=== PATIENT | female | born 1945 | race Caucasian/White ===

== ENCOUNTER 2020-07-21 21:36 | Inpatient (IN) ==
[2020-07-21 22:30] LABS: Basophils % 0.1 %; Hematocrit 34.6 % (35.3-44.9); Hemoglobin 11.2 g/dL (11.5-15.4); Immature Granulocytes % 0.4 % (0-4); Lymphocytes # 1.2 K/mcL (0.6-4.6); Lymphocytes % 16.2 %; Mean Corpuscular HGB Conc 32.4 g/dL (31.6-35.5); Mean Corpuscular Volume 89.6 fL (83.0-100.0); Mean Platelet Volume 9.3 fL (9.4-12.4); Monocytes # 0.4 K/mcL (0.0-1.3); Monocytes % 5.9 %; Neutrophils # 5.6 K/mcL (1.6-8.9); Platelet Count 308 K/mcL (140-400); Red Blood Count 3.86 M/mcL (3.82-4.97); Red Cell Distribution Width 13.6 % (11.5-14.5); Segmented Neutrophils % 77.4 %; White Blood Count 7.2 K/mcL (4.3-11.1)
[2020-07-21 22:52] LABS: Alanine Aminotransferase 9 Units/L (7-52); Albumin 3.9 g/dL (3.5-5.7); Alkaline Phosphatase 30 Units/L (34-104); Aspartate Amino Transferase 15 Units/L (13-39); BUN/Creatinine Ratio 26 (6-26); Bilirubin,Total 0.4 mg/dL (0.3-1.0); Blood Urea Nitrogen 19 mg/dL (8-23); Calcium 9.3 mg/dL (8.6-10.3); Carbon Dioxide 23 mEq/L (23-29); Chloride 104 mEq/L (98-107); Globulin 3.9 g/dL (2.4-3.5); Glucose 142 mg/dL (70-105); Magnesium 2.1 mg/dL (1.6-2.6); Osmolality,Calculated 291 (280-300); Phosphorous 2.9 mg/dL (2.7-4.5); Sodium 138 mEq/L (136-145); Total Protein 7.8 g/dL (6.4-8.9); Troponin I < 0.03 ng/mL (< 0.04); eGFR For African Americans > 60 (> 60); eGFR For Non-African Americans > 60 (> 60)
[2020-07-21 23:10] LABS: Ferritin 138 ng/mL (10-120)
[2020-07-21 23:46] LABS: Bacteria,Urine Moderate per hpf (None-Few); Bilirubin,Urine Negative (Negative); Blood,Urine Negative (Negative); Clarity,Urine Clear (Clear); Color,Urine Yellow (Yellow); Glucose,Urine (UA) Normal (Normal); Hyaline Casts,Urine Few per lpf (None Seen); Ketones,Urine Negative (Negative); Leukocyte Esterase,Urine Small (Negative); Mucus,Urine Few per lpf (None-Few); Nitrite,Urine Positive (Negative); PH,Urine 5.5 pH Units (5.0-8.0); Protein,Urine 30 mg/dL (Neg-Trace); RBC,Urine 0-3 per hpf (0-3); Specific Gravity,Urine 1.027 (1.010-1.025); Squamous Epithelial Cell,Urine Few per hpf (None-Few); Urobilinogen,Urine Normal (Normal)
[2020-07-22] MEDS ORDERED: cephALEXin 250 MG CAPSULE PO ONE (00:33)
[2020-07-22] MEDS ORDERED: 0.9 % Sodium Chloride 1,000 ML IVC ONE (00:36)
[2020-07-22] MEDS ORDERED: cefTRIAXone 1,000 MG in Water for inj. (sterile) 10 ML IVP ONE (00:36)
[2020-07-22] MEDS ORDERED: Acetaminophen 325 MG TABLET PO ONE (00:38)
[2020-07-22] MEDS ORDERED: Naloxone 0.4 MG/ML INJ IVP PRN (02:10)
[2020-07-22] MEDS ORDERED: 0.9 % Sodium Chloride 1,000 ML IVC SCH (02:15)
[2020-07-22 03:44] LABS: Hematocrit 30.2 % (35.3-44.9); Hemoglobin 9.8 g/dL (11.5-15.4); Mean Corpuscular HGB Conc 32.5 g/dL (31.6-35.5); Mean Corpuscular Hemoglobin 29.4 pg (28.0-33.3); Mean Corpuscular Volume 90.7 fL (83.0-100.0); Mean Platelet Volume 9.1 fL (9.4-12.4); Platelet Count 273 K/mcL (140-400); Red Blood Count 3.33 M/mcL (3.82-4.97); Red Cell Distribution Width 13.5 % (11.5-14.5); White Blood Count 5.6 K/mcL (4.3-11.1)
[2020-07-22 04:00] LABS: BUN/Creatinine Ratio 29 (6-26); Blood Urea Nitrogen 18 mg/dL (8-23); Calcium 8.1 mg/dL (8.6-10.3); Carbon Dioxide 19 mEq/L (23-29); Chloride 109 mEq/L (98-107); Glucose 109 mg/dL (70-105); Osmolality,Calculated 288 (280-300); Potassium 4.1 mEq/L (3.5-5.1); Sodium 138 mEq/L (136-145); eGFR For African Americans > 60 (> 60); eGFR For Non-African Americans > 60 (> 60)
[2020-07-22] MEDS: *HR* Heparin 5,000 UNIT/ML VIAL SQ SCH ×3 (07:28→21:01)
[2020-07-22] MEDS ORDERED: 0.9 % Sodium Chloride 500 ML IVC ONE ×2 (13:45→14:15)
[2020-07-22] MEDS ORDERED: Albuterol 2.5 MG/3 ML NEBULIZER IH PRN (15:36)
[2020-07-22] MEDS: Rivastigmine Tartrate (oral) 1.5 MG CAPSULE PO SCH (21:01)
[2020-07-23 00:59] LABS: Basophils % 0.2 %; Eosinophils % 0.2 %; Hematocrit 32.5 % (35.3-44.9); Hemoglobin 10.2 g/dL (11.5-15.4); Immature Granulocytes % 0.4 % (0-4); Lymphocytes # 1.6 K/mcL (0.6-4.6); Lymphocytes % 30.8 %; Mean Corpuscular HGB Conc 31.4 g/dL (31.6-35.5); Mean Corpuscular Hemoglobin 28.3 pg (28.0-33.3); Monocytes # 0.5 K/mcL (0.0-1.3); Monocytes % 9.3 %; Platelet Count 306 K/mcL (140-400); Red Blood Count 3.61 M/mcL (3.82-4.97); Red Cell Distribution Width 13.4 % (11.5-14.5); Segmented Neutrophils % 59.1 %; White Blood Count 5.1 K/mcL (4.3-11.1)
[2020-07-23 01:16] LABS: Alanine Aminotransferase 7 Units/L (7-52); Albumin 3.3 g/dL (3.5-5.7); Alkaline Phosphatase 24 Units/L (34-104); Aspartate Amino Transferase 13 Units/L (13-39); BUN/Creatinine Ratio 18 (6-26); Bilirubin,Total 0.4 mg/dL (0.3-1.0); Blood Urea Nitrogen 9 mg/dL (8-23); Calcium 8.6 mg/dL (8.6-10.3); Carbon Dioxide 21 mEq/L (23-29); Chloride 112 mEq/L (98-107); Globulin 3.3 g/dL (2.4-3.5); Glucose 93 mg/dL (70-105); Osmolality,Calculated 288 (280-300); Potassium 3.3 mEq/L (3.5-5.1); Sodium 140 mEq/L (136-145); Total Protein 6.6 g/dL (6.4-8.9); eGFR For African Americans > 60 (> 60); eGFR For Non-African Americans > 60 (> 60)
[2020-07-23 01:34] LABS: Platelet Estimate Normal (Normal); Reactive Lymphocytes Present (Not Present)
[2020-07-23] MEDS: *HR* Heparin 5,000 UNIT/ML VIAL SQ SCH ×3 (05:53→20:31)
[2020-07-23] MEDS: lisinopriL 5 MG TABLET PO SCH ×2 (08:52→09:20)
[2020-07-23] MEDS: Rivastigmine Tartrate (oral) 1.5 MG CAPSULE PO SCH ×2 (08:52→20:32)
[2020-07-23] MEDS: cefTRIAXone 1,000 MG in Water for inj. (sterile) 10 ML IVP SCH (08:53)
[2020-07-24 05:43] LABS: Basophils % 0.4 %; Eosinophils # 0.1 K/mcL (0.0-0.6); Eosinophils % 1.2 %; Hematocrit 33.6 % (35.3-44.9); Hemoglobin 10.7 g/dL (11.5-15.4); Immature Granulocytes % 0.4 % (0-4); Lymphocytes # 1.7 K/mcL (0.6-4.6); Lymphocytes % 33.5 %; Mean Corpuscular HGB Conc 31.8 g/dL (31.6-35.5); Mean Corpuscular Hemoglobin 28.6 pg (28.0-33.3); Mean Corpuscular Volume 89.8 fL (83.0-100.0); Mean Platelet Volume 8.9 fL (9.4-12.4); Monocytes # 0.5 K/mcL (0.0-1.3); Monocytes % 8.9 %; Neutrophils # 2.9 K/mcL (1.6-8.9); Platelet Count 347 K/mcL (140-400); Red Blood Count 3.74 M/mcL (3.82-4.97); Red Cell Distribution Width 13.3 % (11.5-14.5); Segmented Neutrophils % 55.6 %; White Blood Count 5.2 K/mcL (4.3-11.1)
[2020-07-24] MEDS: *HR* Heparin 5,000 UNIT/ML VIAL SQ SCH ×3 (05:49→19:48)
[2020-07-24 05:57] LABS: Alanine Aminotransferase 7 Units/L (7-52); Albumin 3.4 g/dL (3.5-5.7); Albumin/Globulin Ratio 0.9 (1.1-2.2); Alkaline Phosphatase 26 Units/L (34-104); Aspartate Amino Transferase 12 Units/L (13-39); BUN/Creatinine Ratio 20 (6-26); Bilirubin,Total 0.4 mg/dL (0.3-1.0); Blood Urea Nitrogen 12 mg/dL (8-23); Calcium 9.2 mg/dL (8.6-10.3); Carbon Dioxide 22 mEq/L (23-29); Chloride 111 mEq/L (98-107); Globulin 3.6 g/dL (2.4-3.5); Glucose 97 mg/dL (70-105); Osmolality,Calculated 298 (280-300); Potassium 3.4 mEq/L (3.5-5.1); Sodium 144 mEq/L (136-145); eGFR For African Americans > 60 (> 60); eGFR For Non-African Americans > 60 (> 60)
[2020-07-24] MEDS: cefTRIAXone 1,000 MG in Water for inj. (sterile) 10 ML IVP SCH (07:48)
[2020-07-24] MEDS: Rivastigmine Tartrate (oral) 1.5 MG CAPSULE PO SCH ×2 (07:48→19:46)
[2020-07-24] MEDS: lisinopriL 5 MG TABLET PO SCH (07:48)
[2020-07-24 09:11] LABS: Folate 10.7 ng/mL (3.0-16.0)
[2020-07-24] MEDS: Cyanocobalamin (B-12) 1,000 MCG/ML VIAL IM SCH (13:20)
[2020-07-24] MEDS: Thiamine (B-1) 100 MG in 0.9 % Sodium Chloride 50 ML IVPB SCH ×3 (13:20→19:48)
[2020-07-25] MEDS: *HR* Heparin 5,000 UNIT/ML VIAL SQ SCH ×3 (05:30→21:05)
[2020-07-25 05:52] LABS: Basophils % 0.4 %; Eosinophils # 0.1 K/mcL (0.0-0.6); Eosinophils % 1.1 %; Hematocrit 34.6 % (35.3-44.9); Hemoglobin 11.1 g/dL (11.5-15.4); Immature Granulocytes % 1.5 % (0-4); Lymphocytes % 36.3 %; Mean Corpuscular HGB Conc 32.1 g/dL (31.6-35.5); Mean Corpuscular Hemoglobin 28.2 pg (28.0-33.3); Mean Corpuscular Volume 87.8 fL (83.0-100.0); Mean Platelet Volume 10.1 fL (9.4-12.4); Monocytes # 0.4 K/mcL (0.0-1.3); Monocytes % 7.2 %; Neutrophils # 2.9 K/mcL (1.6-8.9); Platelet Count 320 K/mcL (140-400); Red Blood Count 3.94 M/mcL (3.82-4.97); Red Cell Distribution Width 13.2 % (11.5-14.5); Segmented Neutrophils % 53.5 %; White Blood Count 5.4 K/mcL (4.3-11.1)
[2020-07-25 06:05] LABS: Alanine Aminotransferase 8 Units/L (7-52); Albumin 3.6 g/dL (3.5-5.7); Albumin/Globulin Ratio 0.9 (1.1-2.2); Alkaline Phosphatase 45 Units/L (34-104); Aspartate Amino Transferase 18 Units/L (13-39); BUN/Creatinine Ratio 34 (6-26); Bilirubin,Total 0.5 mg/dL (0.3-1.0); Blood Urea Nitrogen 20 mg/dL (8-23); Calcium 9.6 mg/dL (8.6-10.3); Carbon Dioxide 20 mEq/L (23-29); Chloride 112 mEq/L (98-107); Glucose 78 mg/dL (70-105); Osmolality,Calculated 301 (280-300); Potassium 3.5 mEq/L (3.5-5.1); Sodium 145 mEq/L (136-145); Total Protein 7.6 g/dL (6.4-8.9); eGFR For African Americans > 60 (> 60); eGFR For Non-African Americans > 60 (> 60)
[2020-07-25] MEDS: cefTRIAXone 1,000 MG in Water for inj. (sterile) 10 ML IVP SCH (09:19)
[2020-07-25] MEDS: lisinopriL 5 MG TABLET PO SCH (09:19)
[2020-07-25] MEDS: Rivastigmine Tartrate (oral) 1.5 MG CAPSULE PO SCH ×2 (09:19→21:03)
[2020-07-25] MEDS: Thiamine (B-1) 100 MG in 0.9 % Sodium Chloride 50 ML IVPB SCH ×3 (09:26→21:04)
[2020-07-25] MEDS: Cyanocobalamin (B-12) 1,000 MCG/ML VIAL IM SCH (09:26)
[2020-07-25] MEDS: Megestrol Acetate 400 MG/10 ML UDC PO SCH (15:17)
[2020-07-26 01:08] LABS: Basophils % 0.3 %; Eosinophils # 0.1 K/mcL (0.0-0.6); Eosinophils % 1.1 %; Hematocrit 34.4 % (35.3-44.9); Hemoglobin 10.7 g/dL (11.5-15.4); Immature Granulocytes % 1.1 % (0-4); Lymphocytes # 2.2 K/mcL (0.6-4.6); Lymphocytes % 33.2 %; Mean Corpuscular HGB Conc 31.1 g/dL (31.6-35.5); Mean Corpuscular Hemoglobin 28.2 pg (28.0-33.3); Mean Corpuscular Volume 90.8 fL (83.0-100.0); Mean Platelet Volume 8.8 fL (9.4-12.4); Monocytes # 0.5 K/mcL (0.0-1.3); Monocytes % 7.8 %; Neutrophils # 3.8 K/mcL (1.6-8.9); Platelet Count 393 K/mcL (140-400); Red Blood Count 3.79 M/mcL (3.82-4.97); Red Cell Distribution Width 13.2 % (11.5-14.5); Segmented Neutrophils % 56.5 %; White Blood Count 6.6 K/mcL (4.3-11.1)
[2020-07-26 01:22] LABS: Alanine Aminotransferase 10 Units/L (7-52); Albumin 3.7 g/dL (3.5-5.7); Alkaline Phosphatase 34 Units/L (34-104); Aspartate Amino Transferase 20 Units/L (13-39); BUN/Creatinine Ratio 37 (6-26); Bilirubin,Total 0.4 mg/dL (0.3-1.0); Blood Urea Nitrogen 22 mg/dL (8-23); Calcium 9.4 mg/dL (8.6-10.3); Carbon Dioxide 22 mEq/L (23-29); Chloride 111 mEq/L (98-107); Globulin 3.6 g/dL (2.4-3.5); Glucose 95 mg/dL (70-105); Osmolality,Calculated 303 (280-300); Sodium 145 mEq/L (136-145); Total Protein 7.3 g/dL (6.4-8.9); eGFR For African Americans > 60 (> 60); eGFR For Non-African Americans > 60 (> 60)
[2020-07-26] MEDS ORDERED: *HR* Enoxaparin 40 MG/0.4 ML SYRINGE SQ SCH (06:00)
[2020-07-26] MEDS ORDERED: Potassium Chloride 40 MEQ, Lidocaine 1% 2 ML in 0.9 % Sodium Chloride 500 ML IVPB ONE (07:40)
[2020-07-26] MEDS: Cyanocobalamin (B-12) 1,000 MCG/ML VIAL IM SCH (08:28)
[2020-07-26] MEDS: cefTRIAXone 1,000 MG in Water for inj. (sterile) 10 ML IVP SCH (08:28)
[2020-07-26] MEDS: Megestrol Acetate 400 MG/10 ML UDC PO SCH (08:28)
[2020-07-26] MEDS: Rivastigmine Tartrate (oral) 1.5 MG CAPSULE PO SCH (08:29)
[2020-07-26] MEDS: lisinopriL 5 MG TABLET PO SCH (08:30)
[2020-07-26] MEDS: Thiamine (B-1) 100 MG in 0.9 % Sodium Chloride 50 ML IVPB SCH ×2 (08:33→15:09)
[2020-07-26 09:57] LABS: Magnesium 2.2 mg/dL (1.6-2.6)
[2020-07-26 16:32] VITALS: BP 115/100
== END 2020-07-26 17:40 | disposition home health service (06) | DRG 689 ==
LOC: 2NENU 21:36 → EMEROOARM 21:36 → SUATTDRO 07-22 01:14 → CDU 07-22 01:40 → 2NENU 07-23 13:32
PROVIDERS: ADMIT Internal Medicine; ATTEND Family Medicine